=== PATIENT | female | born 1930 | race Native Hawaiian/Other Pacific Islander ===

== ENCOUNTER 2016-03-18 09:10 | Inpatient (IN) | payer OTHER ==
[~2016-03-18 09:10] MED LIST: ALPR0.2566 PO; AMLO5TAB PO; ARICEPT ODT10 MG OR; ATIVAN2 MG PO; CITRACAL OR; COZAAR100 MG PO; ESTR0.6211 PO; ESTRACE0.5 MG PO; HYZAAR1 TA1 PO; HYZAAR1 TA2 PO; K-TAB10 MEQ PO; KLOR-CON 1010 MEQ OR; KLOR-CON M2020 MEQ OR; LEVO0.0218 PO; MEGE40SU PO; MEGESTROL AC PO; MELOXICAM15 MG OR; RANI150T78 PO; TRAM50TA PO; TRAZ50TA36 PO; ULORIC40 MG OR; VITAMIN B-125000 MCG PO
== END 2016-04-18 08:00 | disposition still patient (30) ==
LOC: PAVB 09:10
PROVIDERS: ADMIT Internal Medicine
DX: Z51.89 Encounter for other specified aftercare (principal)

== ENCOUNTER 2016-04-18 09:00 | Inpatient (IN) | payer OTHER | END 2016-05-19 10:18 | disposition still patient (30) | LOC: PAVB 09:00 | PROVIDERS: ADMIT Internal Medicine | DX: Z51.89 Encounter for other specified aftercare (principal) ==

== ENCOUNTER 2016-05-19 10:50 | Inpatient (IN) | payer OTHER | END 2016-06-16 09:48 | disposition still patient (30) | LOC: PAVB 10:50 | PROVIDERS: ADMIT Internal Medicine | DX: Z51.89 Encounter for other specified aftercare (principal) ==

== ENCOUNTER 2016-05-22 15:55 | Outpatient (CLI) | payer OTHER ==
[2016-05-22 16:07] LABS: PLATELET COUNT 279 K/uL (152-353)
[2016-05-22 16:49] LABS: POTASSIUM 3.5 mmol/L (3.6-5.2)
== END 2016-05-22 16:55 | disposition home or self-care (01) ==
LOC: LAB 15:55
PROVIDERS: Internal Medicine
DX: R53.81 Other malaise (principal)
CPT/HCPCS: 80048; 85027

== ENCOUNTER 2016-06-08 08:36 | Outpatient (CLI) | payer OTHER ==
[2016-06-08 09:10] LABS: PARTIAL THROMBOPLASTIN TIME 30.1 SECONDS (24.5-33.6)
== END 2016-06-08 23:37 | disposition home or self-care (01) ==
LOC: CT 08:36
PROVIDERS: Internal Medicine
DX: Z01.812 Encounter for preprocedural laboratory examination (principal); Z01.818 Encounter for other preprocedural examination; M54.89 Other dorsalgia
CPT/HCPCS: 36415; 85610; 85730; Q9963

== ENCOUNTER 2016-06-16 11:03 | Inpatient (IN) | payer OTHER | END 2016-07-17 08:08 | disposition still patient (30) | LOC: PAVB 11:03 | PROVIDERS: ADMIT Internal Medicine | DX: Z51.89 Encounter for other specified aftercare (principal) ==

== ENCOUNTER 2016-07-05 15:18 | Outpatient (CLI) | payer OTHER | END 2016-07-05 19:24 | disposition home or self-care (01) | LOC: LAB 15:18 | DX: R41.82 Altered mental status, unspecified (principal) | CPT/HCPCS: 81000 ==

== ENCOUNTER 2016-07-17 09:35 | Inpatient (IN) | payer OTHER | END 2016-08-16 09:14 | disposition still patient (30) | LOC: PAVB 09:35 | PROVIDERS: ADMIT Internal Medicine | DX: Z51.89 Encounter for other specified aftercare (principal) ==

== ENCOUNTER 2016-07-21 05:32 | Outpatient (CLI) | payer OTHER ==
[2016-07-21 07:02] LABS: POTASSIUM 3.4 mmol/L (3.6-5.2)
[2016-07-21 07:06] LABS: PLATELET COUNT 209 K/uL (152-353)
== END 2016-07-21 06:32 | disposition home or self-care (01) ==
LOC: LAB 05:32
PROVIDERS: Internal Medicine
DX: I10 Essential (primary) hypertension (principal); D51.8 Other vitamin B12 deficiency anemias
CPT/HCPCS: 80053; 82607; 85027

== ENCOUNTER 2016-08-04 05:33 | Outpatient (CLI) | payer OTHER | END 2016-08-04 19:03 | disposition home or self-care (01) | LOC: LAB 05:33 | DX: Z16.24 Resistance to multiple antibiotics (principal) | CPT/HCPCS: 87081 ==

== ENCOUNTER 2016-08-16 10:14 | Inpatient (IN) | payer OTHER | END 2016-09-16 09:37 | disposition still patient (30) | LOC: PAVB 10:14 | PROVIDERS: ADMIT Internal Medicine | DX: Z51.89 Encounter for other specified aftercare (principal) ==

== ENCOUNTER 2016-09-16 10:07 | Inpatient (IN) | payer OTHER | END 2016-10-16 15:23 | disposition still patient (30) | LOC: PAVB 10:07 | PROVIDERS: ADMIT Internal Medicine | DX: Z51.89 Encounter for other specified aftercare (principal) ==

== ENCOUNTER 2016-10-16 15:49 | Inpatient (IN) | payer OTHER | END 2016-11-16 09:45 | disposition still patient (30) | LOC: PAVB 15:49 | PROVIDERS: ADMIT Internal Medicine | DX: Z51.89 Encounter for other specified aftercare (principal) ==

== ENCOUNTER 2016-11-10 10:38 | Outpatient (CLI) | payer OTHER | END 2016-11-10 12:00 | disposition home or self-care (01) | LOC: CT 10:38 | DX: S00.83XA Contusion of other part of head, initial encounter (principal) ==

== ENCOUNTER 2016-11-16 11:08 | Inpatient (IN) | payer OTHER | END 2016-12-17 08:43 | disposition still patient (30) | LOC: PAVB 11:08 | PROVIDERS: ADMIT Internal Medicine | DX: Z51.89 Encounter for other specified aftercare (principal) ==

== ENCOUNTER 2016-12-17 09:23 | Inpatient (IN) | payer OTHER | END 2017-01-16 10:41 | disposition still patient (30) | LOC: PAVB 09:23 | PROVIDERS: ADMIT Internal Medicine | DX: Z51.89 Encounter for other specified aftercare (principal) ==

== ENCOUNTER 2017-01-16 10:50 | Inpatient (IN) | payer OTHER | END 2017-02-16 12:58 | disposition still patient (30) | LOC: PAVB 10:50 | PROVIDERS: ADMIT Internal Medicine ==

== ENCOUNTER 2017-01-18 06:48 | Outpatient (CLI) | payer OTHER ==
[2017-01-18 07:54] LABS: PLATELET COUNT 169 K/uL (152-353)
[2017-01-18 08:27] LABS: POTASSIUM 3.7 mmol/L (3.6-5.2)
== END 2017-01-18 07:50 | disposition home or self-care (01) ==
LOC: LAB 06:48
PROVIDERS: Internal Medicine
DX: I10 Essential (primary) hypertension (principal); D51.8 Other vitamin B12 deficiency anemias
CPT/HCPCS: 36415; 80053; 82607; 85027

== ENCOUNTER 2017-02-16 13:59 | Inpatient (IN) | payer OTHER | END 2017-03-18 09:20 | disposition still patient (30) | LOC: PAVB 13:59 | PROVIDERS: ADMIT Internal Medicine ==

== ENCOUNTER 2017-03-18 09:42 | Inpatient (IN) | payer OTHER | END 2017-04-18 09:31 | disposition still patient (30) | LOC: PAVB 09:42 | PROVIDERS: ADMIT Internal Medicine ==

== ENCOUNTER 2017-04-18 10:03 | Inpatient (IN) | payer OTHER | END 2017-05-19 09:50 | disposition still patient (30) | LOC: PAVB 10:03 | PROVIDERS: ADMIT Internal Medicine ==

== ENCOUNTER 2017-05-09 12:15 | Day surgery (SDC) | payer OTHER | END 2017-05-09 14:05 | disposition home or self-care (01) | LOC: OR 12:15 | PROC: 0DB68ZZ Excision of Stomach, Via Natural or Artificial Opening Endoscopic (ICD-10-PCS; principal; 2017-05-09) | PROC: 0D738ZZ Dilation of Lower Esophagus, Via Natural or Artificial Opening Endoscopic (ICD-10-PCS; 2017-05-09) | DX: K44.9 Diaphragmatic hernia without obstruction or gangrene (principal); K22.2 Esophageal obstruction; R13.19 Other dysphagia | CPT/HCPCS: J2001; J2704 ==

== ENCOUNTER 2017-05-19 10:38 | Inpatient (IN) | payer OTHER | END 2017-06-16 09:19 | disposition still patient (30) | LOC: PAVB 10:38 | PROVIDERS: ADMIT Internal Medicine ==

== ENCOUNTER 2017-06-16 09:56 | Inpatient (IN) | payer OTHER | END 2017-07-17 08:00 | disposition still patient (30) | LOC: PAVB 09:56 | PROVIDERS: ADMIT Internal Medicine ==

== ENCOUNTER 2017-07-17 09:00 | Inpatient (IN) | payer OTHER | END 2017-08-16 09:05 | disposition still patient (30) | LOC: PAVB 09:00 | PROVIDERS: ADMIT Internal Medicine ==

== ENCOUNTER 2017-07-19 08:03 | Outpatient (CLI) | payer OTHER ==
[2017-07-19 08:44] LABS: PLATELET COUNT 158 K/uL (152-353)
[2017-07-19 08:55] LABS: POTASSIUM 3.4 mmol/L (3.6-5.2)
== END 2017-07-19 22:52 | disposition home or self-care (01) ==
LOC: LAB 08:03
PROVIDERS: Internal Medicine
DX: I10 Essential (primary) hypertension (principal); D51.8 Other vitamin B12 deficiency anemias; R91.8 Other nonspecific abnormal finding of lung field
CPT/HCPCS: 80053; 82607; 85027

== ENCOUNTER 2017-08-11 07:33 | Day surgery (SDC) | payer OTHER ==
[~2017-08-11] VITALS: Ht 30.5 cm; Wt 0.5 kg
== END 2017-08-11 10:27 | disposition home or self-care (01) ==
LOC: OR 07:33
PROC: 0D738ZZ Dilation of Lower Esophagus, Via Natural or Artificial Opening Endoscopic (ICD-10-PCS; principal; 2017-08-11)
DX: R13.19 Other dysphagia (principal); K22.2 Esophageal obstruction; K44.9 Diaphragmatic hernia without obstruction or gangrene
CPT/HCPCS: J0461; J2001; J2704

== ENCOUNTER 2017-08-16 09:33 | Inpatient (IN) | payer OTHER | END 2017-09-16 08:53 | disposition still patient (30) | LOC: PAVB 09:33 | PROVIDERS: ADMIT Internal Medicine ==

== ENCOUNTER 2017-09-16 09:20 | Inpatient (IN) | payer OTHER | END 2017-10-16 14:19 | disposition still patient (30) | LOC: PAVB 09:20 | PROVIDERS: ADMIT Internal Medicine ==

== ENCOUNTER 2017-10-16 14:52 | Inpatient (IN) | payer OTHER | END 2017-11-16 08:00 | disposition still patient (30) | LOC: PAVB 14:52 | PROVIDERS: ADMIT Internal Medicine ==

== ENCOUNTER 2017-11-16 09:00 | Inpatient (IN) | payer OTHER | END 2017-12-17 10:18 | disposition still patient (30) | LOC: PAVB 09:00 | PROVIDERS: ADMIT Internal Medicine ==

== ENCOUNTER 2017-12-17 11:01 | Inpatient (IN) | payer OTHER | END 2018-01-16 09:33 | disposition still patient (30) | LOC: PAVB 11:01 | PROVIDERS: ADMIT Internal Medicine ==

== ENCOUNTER 2017-12-27 17:16 | Outpatient (CLI) | payer OTHER ==
[2017-12-27 17:30] LABS: PLATELET COUNT 199 K/uL (152-353)
== END 2017-12-27 22:28 | disposition home or self-care (01) ==
LOC: RAD 17:16
PROVIDERS: Internal Medicine
DX: R06.02 Shortness of breath (principal); R53.83 Other fatigue
CPT/HCPCS: 80048; 83880; 85027

== ENCOUNTER 2018-01-16 10:11 | Inpatient (IN) | payer OTHER | END 2018-02-16 08:48 | disposition still patient (30) | LOC: PAVB 10:11 | PROVIDERS: ADMIT Internal Medicine ==

== ENCOUNTER 2018-01-17 04:27 | Outpatient (CLI) | payer OTHER ==
[2018-01-17 06:38] LABS: PLATELET COUNT 169 K/uL (152-353)
== END 2018-01-17 22:56 | disposition home or self-care (01) ==
LOC: LAB 04:27
PROVIDERS: Internal Medicine
DX: D50.8 Other iron deficiency anemias (principal); I10 Essential (primary) hypertension; D51.8 Other vitamin B12 deficiency anemias
CPT/HCPCS: 80053; 82607; 82728; 83540; 85027

== ENCOUNTER 2018-02-16 09:51 | Inpatient (IN) | payer OTHER | END 2018-03-18 08:32 | disposition still patient (30) | LOC: PAVB 09:51 | PROVIDERS: ADMIT Internal Medicine ==

== ENCOUNTER 2018-03-06 04:56 | Outpatient (CLI) | payer OTHER | END 2018-03-06 19:39 | disposition home or self-care (01) | LOC: LAB 04:56 | DX: D50.9 Iron deficiency anemia, unspecified (principal) | CPT/HCPCS: 83540 ==

== ENCOUNTER 2018-03-06 14:55 | Outpatient (CLI) | payer OTHER | END 2018-03-06 19:52 | disposition home or self-care (01) | LOC: RAD 14:55 | DX: N95.8 Other specified menopausal and perimenopausal disorders (principal) ==

== ENCOUNTER 2018-03-18 09:15 | Inpatient (IN) | payer OTHER | END 2018-04-18 11:05 | disposition still patient (30) | LOC: PAVB 09:15 | PROVIDERS: ADMIT Internal Medicine ==

== ENCOUNTER 2018-04-18 11:24 | Inpatient (IN) | payer OTHER | END 2018-05-19 10:54 | disposition still patient (30) | LOC: PAVB 11:24 | PROVIDERS: ADMIT Internal Medicine ==

== ENCOUNTER 2018-05-19 11:14 | Inpatient (IN) | payer OTHER | END 2018-06-16 10:19 | disposition still patient (30) | LOC: PAVB 11:14 | PROVIDERS: ADMIT Internal Medicine ==

== ENCOUNTER 2018-06-16 11:11 | Inpatient (IN) | payer OTHER | END 2018-07-17 10:39 | disposition still patient (30) | LOC: PAVB 11:11 | PROVIDERS: ADMIT Internal Medicine ==

== ENCOUNTER 2018-07-17 11:19 | Inpatient (IN) | payer OTHER | END 2018-08-16 11:17 | disposition still patient (30) | LOC: PAVB 11:19 | PROVIDERS: ADMIT Internal Medicine ==

== ENCOUNTER 2018-07-20 04:18 | Outpatient (CLI) | payer OTHER ==
[2018-07-20 06:27] LABS: PLATELET COUNT 147 K/uL (152-353)
[2018-07-20 06:38] LABS: POTASSIUM 3.6 mmol/L (3.6-5.2)
== END 2018-07-20 19:06 | disposition home or self-care (01) ==
LOC: LAB 04:18
PROVIDERS: Internal Medicine
DX: I10 Essential (primary) hypertension (principal); D51.8 Other vitamin B12 deficiency anemias
CPT/HCPCS: 80053; 82607; 85027

== ENCOUNTER 2018-08-16 12:23 | Inpatient (IN) | payer OTHER | END 2018-09-16 08:38 | disposition still patient (30) | LOC: PAVB 12:23 | PROVIDERS: ADMIT Internal Medicine | DX: Z51.89 Encounter for other specified aftercare (principal) ==

== ENCOUNTER 2018-08-21 05:25 | Outpatient (CLI) | payer OTHER | END 2018-08-21 20:14 | disposition home or self-care (01) | LOC: LAB 05:25 | DX: D50.8 Other iron deficiency anemias (principal) | CPT/HCPCS: 83540 ==

== ENCOUNTER 2018-09-16 09:27 | Inpatient (IN) | payer OTHER | END 2018-10-16 09:37 | disposition still patient (30) | LOC: PAVB 09:27 | PROVIDERS: ADMIT Internal Medicine ==

== ENCOUNTER 2018-10-16 11:25 | Inpatient (IN) | payer OTHER | END 2018-11-16 10:35 | disposition still patient (30) | LOC: PAVB 11:25 | PROVIDERS: ADMIT Internal Medicine ==

== ENCOUNTER 2018-11-16 11:17 | Inpatient (IN) | payer OTHER | END 2018-12-17 16:26 | disposition still patient (30) | LOC: PAVB 11:17 | PROVIDERS: ADMIT Internal Medicine ==

== ENCOUNTER 2018-12-07 10:35 | Outpatient (CLI) | payer OTHER | END 2018-12-07 20:31 | disposition home or self-care (01) | LOC: RAD 10:35 | DX: R05 Cough (principal) ==

== ENCOUNTER 2018-12-17 17:06 | Inpatient (IN) | payer OTHER | END 2019-01-16 09:21 | disposition still patient (30) | LOC: PAVB 17:06 | PROVIDERS: ADMIT Internal Medicine ==

== ENCOUNTER 2019-01-16 10:28 | Inpatient (IN) | payer OTHER | END 2019-02-16 11:09 | disposition still patient (30) | LOC: PAVB 10:28 | PROVIDERS: ADMIT Internal Medicine ==

== ENCOUNTER 2019-01-19 03:27 | Outpatient (CLI) | payer OTHER ==
[2019-01-19 05:36] LABS: PLATELET COUNT 148 K/uL (152-353)
[2019-01-19 05:45] LABS: POTASSIUM 3.7 mmol/L (3.6-5.2)
== END 2019-01-19 21:58 | disposition home or self-care (01) ==
LOC: LAB 03:27
PROVIDERS: Internal Medicine
DX: D51.8 Other vitamin B12 deficiency anemias (principal); I10 Essential (primary) hypertension
CPT/HCPCS: 80053; 82607; 85027

== ENCOUNTER 2019-02-16 11:34 | Inpatient (IN) | payer OTHER | END 2019-03-18 08:00 | disposition still patient (30) | LOC: PAVB 11:34 | PROVIDERS: ADMIT Internal Medicine ==

== ENCOUNTER 2019-02-21 05:07 | Outpatient (CLI) | payer OTHER | END 2019-02-21 21:33 | disposition home or self-care (01) | LOC: LAB 05:07 | DX: D50.8 Other iron deficiency anemias (principal) | CPT/HCPCS: 83540 ==

== ENCOUNTER 2019-03-18 11:04 | Inpatient (IN) | payer OTHER | END 2019-04-18 08:34 | disposition still patient (30) | LOC: PAVB 11:04 | PROVIDERS: ADMIT Internal Medicine ==

== ENCOUNTER 2019-04-18 08:51 | Inpatient (IN) | payer OTHER | END 2019-05-19 09:56 | disposition still patient (30) | LOC: PAVB 08:51 | PROVIDERS: ADMIT Internal Medicine ==

== ENCOUNTER 2019-05-19 10:34 | Inpatient (IN) | payer OTHER | END 2019-06-17 13:15 | disposition still patient (30) | LOC: PAVB 10:34 | PROVIDERS: ADMIT Internal Medicine ==

== ENCOUNTER 2019-06-17 13:59 | Inpatient (IN) | payer OTHER | END 2019-07-18 09:41 | disposition still patient (30) | LOC: PAVB 13:59 | PROVIDERS: ADMIT Internal Medicine ==

== ENCOUNTER 2019-07-18 10:26 | Inpatient (IN) | payer OTHER | END 2019-08-17 09:02 | disposition still patient (30) | LOC: PAVB 10:26 | PROVIDERS: ADMIT Internal Medicine ==

== ENCOUNTER 2019-07-23 07:20 | Outpatient (CLI) | payer OTHER ==
[2019-07-23 07:51] LABS: PLATELET COUNT 140 K/uL (152-353)
[2019-07-23 08:03] LABS: POTASSIUM 3.5 mmol/L (3.6-5.2)
== END 2019-07-23 19:13 | disposition home or self-care (01) ==
LOC: LAB 07:20
PROVIDERS: Internal Medicine
DX: I10 Essential (primary) hypertension (principal); D51.8 Other vitamin B12 deficiency anemias
CPT/HCPCS: 80053; 82607; 85027

== ENCOUNTER 2019-08-17 10:06 | Inpatient (IN) | payer OTHER | END 2019-09-17 09:12 | disposition still patient (30) | LOC: PAVB 10:06 | PROVIDERS: ADMIT Internal Medicine | CPT/HCPCS: 87635; U0002 ==

== ENCOUNTER 2019-08-20 07:31 | Outpatient (CLI) | payer OTHER | END 2019-08-20 19:22 | disposition home or self-care (01) | LOC: LAB 07:31 | DX: D50.8 Other iron deficiency anemias (principal) | CPT/HCPCS: 83540 ==

== ENCOUNTER 2019-09-17 10:04 | Inpatient (IN) | payer OTHER | END 2019-10-17 10:20 | disposition still patient (30) | LOC: PAVB 10:04 | PROVIDERS: ADMIT Internal Medicine | CPT/HCPCS: 87635; U0002 ==

== ENCOUNTER 2019-10-17 11:05 | Inpatient (IN) | payer OTHER | END 2019-11-17 09:17 | disposition still patient (30) | LOC: PAVB 11:05 | PROVIDERS: ADMIT Internal Medicine | CPT/HCPCS: 87635; U0002 ==

== ENCOUNTER 2019-11-17 09:40 | Inpatient (IN) | payer OTHER | END 2019-12-18 12:18 | disposition still patient (30) | LOC: PAVB 09:40 | PROVIDERS: ADMIT Internal Medicine | CPT/HCPCS: 87635; U0002; U0003 ==

== ENCOUNTER 2019-12-18 13:04 | Inpatient (IN) | payer OTHER | END 2020-01-17 11:06 | disposition still patient (30) | LOC: PAVB 13:04 | PROVIDERS: ADMIT Internal Medicine ==

== ENCOUNTER 2019-12-28 15:47 | Outpatient (CLI) | payer OTHER | END 2019-12-29 00:02 | disposition home or self-care (01) | LOC: RAD 15:47 | DX: R05 Cough (principal); R09.81 Nasal congestion ==

== ENCOUNTER 2020-01-17 13:46 | Inpatient (IN) | payer OTHER | END 2020-02-17 08:00 | disposition still patient (30) | LOC: PAVB 13:46 | PROVIDERS: ADMIT Internal Medicine ==

== ENCOUNTER 2020-01-21 07:07 | Outpatient (CLI) | payer OTHER ==
[2020-01-21 07:57] LABS: PLATELET COUNT 173 K/uL (152-353)
[2020-01-21 08:08] LABS: POTASSIUM 3.5 mmol/L (3.6-5.2)
== END 2020-01-21 23:36 | disposition home or self-care (01) ==
LOC: LAB 07:07
PROVIDERS: Internal Medicine
DX: I10 Essential (primary) hypertension (principal); D51.8 Other vitamin B12 deficiency anemias
CPT/HCPCS: 80053; 82607; 85027

== ENCOUNTER 2020-02-17 09:00 | Inpatient (IN) | payer OTHER | END 2020-03-18 09:59 | disposition still patient (30) | LOC: PAVB 09:00 | PROVIDERS: ADMIT Internal Medicine; ATTEND Internal Medicine ==

== ENCOUNTER 2020-02-22 06:29 | Outpatient (CLI) | payer OTHER | END 2020-02-22 19:04 | disposition home or self-care (01) | LOC: LAB 06:29 | DX: D51.8 Other vitamin B12 deficiency anemias (principal) | CPT/HCPCS: 82728; 83540 ==

== ENCOUNTER 2020-03-18 11:10 | Inpatient (IN) | payer OTHER | END 2020-04-18 09:04 | disposition still patient (30) | LOC: PAVB 11:10 | PROVIDERS: ADMIT Internal Medicine; ATTEND Internal Medicine ==

== ENCOUNTER 2020-04-18 09:25 | Inpatient (IN) | payer OTHER | END 2020-05-19 14:56 | disposition still patient (30) | LOC: PAVB 09:25 | PROVIDERS: ADMIT Internal Medicine; ATTEND Internal Medicine ==

== ENCOUNTER 2020-05-19 15:16 | Inpatient (IN) | payer OTHER | END 2020-06-16 09:55 | disposition still patient (30) | LOC: PAVB 15:16 | PROVIDERS: ADMIT Internal Medicine; ATTEND Internal Medicine ==

== ENCOUNTER 2020-06-16 10:20 | Inpatient (IN) | payer OTHER | END 2020-07-17 10:15 | disposition still patient (30) | LOC: PAVB 10:20 | PROVIDERS: ADMIT Internal Medicine; ATTEND Internal Medicine ==

== ENCOUNTER 2020-07-17 10:39 | Inpatient (IN) | payer OTHER | END 2020-08-16 10:51 | disposition still patient (30) | LOC: PAVB 10:39 | PROVIDERS: ADMIT Internal Medicine; ATTEND Internal Medicine ==

== ENCOUNTER 2020-07-18 12:24 | Outpatient (CLI) | payer OTHER ==
[2020-07-18 12:52] LABS: PLATELET COUNT 159 K/uL (152-353)
[2020-07-18 13:13] LABS: POTASSIUM 3.6 mmol/L (3.6-5.2)
== END 2020-07-18 19:24 | disposition home or self-care (01) ==
LOC: LAB 12:24
PROVIDERS: ATTEND Internal Medicine
DX: D51.8 Other vitamin B12 deficiency anemias (principal); I10 Essential (primary) hypertension
CPT/HCPCS: 80053; 82607; 85027

== ENCOUNTER 2020-08-19 07:41 | Outpatient (CLI) | payer OTHER | END 2020-08-19 19:39 | disposition home or self-care (01) | LOC: LAB 07:41 | PROVIDERS: ATTEND Internal Medicine | DX: D51.8 Other vitamin B12 deficiency anemias (principal) | CPT/HCPCS: 82728; 83540 ==